=== PATIENT | female | born 1955 | race Caucasian/White ===

== ENCOUNTER 2018-05-25 09:49 | Emergency (ER) | payer BC ==
[2018-05-25] MEDS ORDERED: Aspirin 81 MG Tab.Chew PO ONE (10:12)
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
--- NOTE | 2018-05-25 11:01 | CR ---
Chest: Portable view of the chest was obtained. Comparison: Prior chest x-ray is not available. Heart size and mediastinum are normal. Lungs are clear. Equivocal density above the left hemidiaphragm is seen and small nodule is difficult to exclude. Lungs otherwise are clear. Impression: 1. Questionable small nodule within the left lung base. Noncontrast CT could be obtained to hopefully exclude this possibility. 2. Nothing acute is otherwise seen on portable chest x-ray. Diagnostic code #9
--- NOTE | 2018-05-25 11:59 | CT ---
CT chest Technique: Multiple axial sections were obtained from above the lung apices inferiorly through the lung bases. Intravenous contrast was not utilized. Comparison: Prior chest x-ray performed on the same day (10:37 AM). Findings: Slight parenchymal density is noted within the lingula. This likely correlates to the nodular density on chest x-ray. This is most likely due to a scar although follow-up will be recommended to confirm stability. Lungs otherwise are clear. No acute parenchymal change is otherwise seen. Mediastinum and hilar region show no adenopathy. No pericardial thickening is seen. Surgical clips are seen from prior cholecystectomy. Bone window settings were reviewed which show nothing acute. Impression: 1. Slight parenchymal density within the lingula likely correlating to the finding on plain film study. This most likely represents a scar but recommend follow-up noncontrast chest CT in 6 months to confirm stability. 2. Nothing acute is otherwise seen. Diagnostic code #9
== END 2018-05-25 12:45 | disposition home or self-care (01) ==
LOC: JD.ED 09:49
DX: F41.0 Panic disorder [episodic paroxysmal anxiety] (principal); R91.8 Other nonspecific abnormal finding of lung field; I10 Essential (primary) hypertension; Z79.899 Other long term (current) drug therapy; Z87.891 Personal history of nicotine dependence
CPT/HCPCS: 36415; 71045; 71250; 80053; 83880; 84439; 84443; 84484; 85007; 85027; 86140; 93005; 99285; A9270; 99284